=== PATIENT | male | born 1940 | race Caucasian/White ===

== ENCOUNTER 2016-07-22 05:43 | Observation (INO) | payer MEDICARE, OTHER ==
--- NOTE | ~2016-07-22 | CN ---
Consultation Report [facility] [address] [place]. [address] NAME: NORMA HUYNH SR : 38 STATUS : ADM Keith PAT#: [id number] AGE: 75 ADM/REG DATE : 07/22/16 MR#: [id number] REPORT SERV DATE: 07/22/16 DICTATED BY: YVES MOON DATE: 07/22/16 REPORT STATUS : Draft TRANSCRIBED BY: MODL DATE: 07/22/16 NEPHROLOGY CONSULT NOTE DATE OF CONSULTATION: 07/22/2016 HISTORY OF PRESENT ILLNESS: Mr. Huynh is a 75-year-old white male, admitted for abnormal stress test and planned cardiac cath, he was found to have elevated creatinine and cardiac cath was canceled and I was consulted for evaluation of acute on chronic renal failure. Baseline creatinine is 1.4 back in 02/2015, 1.2 in 09/2015, 1.4 again in March of this year. These were at Dr. Idris Ruelas's office, his primary care physician in [place]. PAST MEDICAL HISTORY: Significant for supraventricular tachycardia; coronary artery disease, status post coronary bypass grafting in 2003, three-vessel bypass then; carotid disease; hyperlipidemia but intolerant to statins and Zetia; chronic hypertension; and diabetes mellitus type 2, well controlled lately. Hemoglobin A1c is at 8.0 range. Also has been labeled as having a fatty liver for some years and most recently had a diagnosis of cirrhosis with esophageal varices which required banding. SOCIAL HISTORY: No tobacco. No alcohol. No drugs. He is . FAMILY HISTORY: Positive for coronary artery disease. His father at age 54, but no kidney disease or liver disease reported. REVIEW OF SYSTEMS: No chest pain, but has some chest tightness and felt tired all the time which was new. Well controlled blood pressure. Well controlled diabetes. Although he does admit to drinking a lot of sodas lately. PHYSICAL EXAMINATION: VITAL SIGNS: Blood pressure 129/61, heart rate of 56, respirations 19, temperature 98.2. GENERAL: Alert and oriented x3. Cooperative. In no acute distress. Up in bed. Eating lunch. HEENT: Unremarkable. Carotids without bruits. LUNGS: Clear. CARDIOVASCULAR: Without murmur, gallops, or rubs. ABDOMEN: Soft, benign. Bowel sounds are present. Nontender. No bruit. NEUROLOGICAL. Nonfocal. Good attitude. No skin rash or lymphadenopathy. LABORATORY DATA: Sodium 143, potassium 3.9, chloride 110, CO2 of 24, BUN of 46, creatinine 2.92, calcium 8.1. Urinalysis pending. Ultrasound of the kidneys pending. White count is 8.1 with the hemoglobin 12, hematocrit 37, platelet count 112,000. INR is 1.1. ASSESSMENT: 1. Chronic kidney disease, stage IV. Suspected acute renal failure, not chronic. We will Consultation Report [address] [place]. [address] NAME: NORMA HUYNH SR : 38 STATUS : ADM Keith PAT#: [id number] AGE: 75 ADM/REG DATE : 07/22/16 MR#: [id number] REPORT SERV DATE: 07/22/16 DICTATED BY: YVES MOON DATE: 07/22/16 REPORT STATUS : Draft TRANSCRIBED BY: TRISTAN DATE: 07/22/16 rule out myeloma. Ultrasound to rule out obstruction and we will follow serial creatinine after fluid therapy. 2. Coronary artery disease, history of coronary bypass grafting in the past. Positive stress test recently. Needs cardiac cath. We will do in the near future once creatinine has improved. 3. Hypertension. 4. Diabetes mellitus, type 2. 5. Cirrhosis, thought to be GUADALUPE with esophageal varices requiring banding in the past. 6. Anemia, minor. PLAN: Hydration. Serial labs. Ultrasound of the kidneys. We will follow serial lab. GODFREY/TRISTAN Yevs Moon M.D. / [id number] CC: Jelani Conley
[~2016-07-22 05:43] MED LIST: AMARYL2 PO; ASAB PO; ATEN25 PO; BETAP120 PO; DEPO-TESTOS200 MG/M1 IM; FISH-EPA1000 MG PO; GLUCOPHAGE1000 MG PO; HYZAAR 100/25 T1 TAB PO; LEXAPRO10 PO; MD ANDERSON PO/LIQ; MULTIPLE VIT PO; NORV25 PO; PREV30 PO; XIFAXAN550 MG PO
[2016-07-22 07:02] LABS: BASOPHILS 0.6 %; BASOPHILS ABSOLUTE 0.05 10/3/uL (0.0-0.16); EOSINOPHILS 4.8 %; EOSINOPHILS ABSOLUTE 0.39 10/3/uL (0.0-0.53); HEMOGLOBIN 12.9 g/dL (13.6-17.8); IMMATURE GRANULOCYTES 0.2 %; IMMATURE GRANULOCYTES ABSOLUTE 0.02 10/3/uL (0.0-0.11); LYMPHOCYTES 13.5 %; MEAN CORPUS HGB CONC 34.9 g/dL (32.0-36.0); MEAN CORPUSCULAR HEMOGLOB 33.3 pg (26.0-34.0); MEAN CORPUSCULAR VOLUME 95.6 fL (80-100); MEAN PLATELET VOLUME 10.9 fL (9.2-13.0); MONOCYTES 14.4 %; MONOCYTES ABSOLUTE 1.17 10/3/uL (0.21-1.20); NEUTROPHILS 66.5 %; NEUTROPHILS ABSOLUTE 5.39 10/3/uL (2.02-8.40); RBC DISTRIBUTION WIDTH 15.6 % (12.0-16.0); RED CELL COUNT 3.87 10/6/uL (4.7-6.1); WHITE BLOOD CELLS 8.1 10/3/uL (4.5-10.5)
[2016-07-22 07:05] LABS: MANUAL DIFF NO %; PLATELET COUNT 112 10/3/uL (150-400)
[2016-07-22 07:08] LABS: CALCIUM, SERUM 8.1 MG/DL (8.5-10.4); CHLORIDE, SERUM 110 MMOL/L (96-112); CHOL/HDL RATIO(NOT ORDER) 3.5 (0-5); CO2 (CARBON DIOXIDE) 24 MMOL/L (24-34); GLUCOSE, SERUM 103 MG/DL (60-99); HDL CHOLESTEROL 44 MG/DL (> 39); LDL CHOLESTEROL 95 MG/DL (< 130); NON-HDL CHOLESTEROL 112 MG/DL (< 160); POTASSIUM, SERUM 3.9 MMOL/L (3.5-5.3); SODIUM, SERUM 143 MMOL/L (135-148); TRIGLYCERIDE 89 MG/DL (< 150)
[2016-07-22 07:10] LABS: BUN (BLOOD UREA NITROGEN) 46 MG/DL (6-23); CHOLESTEROL 156 MG/DL (< 200); CREATININE 2.92 MG/DL (0.70-1.30); GFR AFRICAN AMERICAN 23 ML/MIN (>=60); GFR NON AFRICAN AMERICAN 20 ML/MIN (>=60)
[2016-07-22 18:10] LABS: ASCORBIC ACID (UR NOT ORDER) NEG (NEG); BILIRUBIN, URINE NEGATIVE (NEG); KETONE, URINE NEGATIVE (NEG); LEUKOCYTE ESTERASE(NOT OR NEG (NEG); WBC (NOT ORDERED) (RFLEX) 1 (0-5)
[2016-07-23 04:27] LABS: BASOPHILS 0.8 %; BASOPHILS ABSOLUTE 0.05 10/3/uL (0.0-0.16); EOSINOPHILS 5.8 %; EOSINOPHILS ABSOLUTE 0.37 10/3/uL (0.0-0.53); HEMATOCRIT 34.1 % (40.0-51.0); HEMOGLOBIN 11.7 g/dL (13.6-17.8); IMMATURE GRANULOCYTES 0.3 %; IMMATURE GRANULOCYTES ABSOLUTE 0.02 10/3/uL (0.0-0.11); LYMPHOCYTES 21.8 %; LYMPHOCYTES ABSOLUTE 1.39 10/3/uL (0.67-4.30); MEAN CORPUS HGB CONC 34.3 g/dL (32.0-36.0); MEAN CORPUSCULAR VOLUME 96.1 fL (80-100); MEAN PLATELET VOLUME 10.8 fL (9.2-13.0); MONOCYTES 14.6 %; MONOCYTES ABSOLUTE 0.93 10/3/uL (0.21-1.20); NEUTROPHILS 56.7 %; NEUTROPHILS ABSOLUTE 3.63 10/3/uL (2.02-8.40); PLATELET COUNT 99 10/3/uL (150-400); RBC DISTRIBUTION WIDTH 15.2 % (12.0-16.0); RED CELL COUNT 3.55 10/6/uL (4.7-6.1); WHITE BLOOD CELLS 6.4 10/3/uL (4.5-10.5)
[2016-07-23 04:28] LABS: MANUAL DIFF NO %
[2016-07-23 04:41] LABS: CALCIUM, SERUM 7.3 MG/DL (8.5-10.4); CHLORIDE, SERUM 113 MMOL/L (96-112); CO2 (CARBON DIOXIDE) 23 MMOL/L (24-34); CREATININE 2.44 MG/DL (0.70-1.30); GFR AFRICAN AMERICAN 28 ML/MIN (>=60); GFR NON AFRICAN AMERICAN 25 ML/MIN (>=60); PHOSPHORUS, SERUM 2.9 MG/DL (2.5-4.5); POTASSIUM, SERUM 3.6 MMOL/L (3.5-5.3); SODIUM, SERUM 145 MMOL/L (135-148)
[2016-07-23 04:44] LABS: T PROTEIN (ELECT)(NOT OR 5.8 G/DL (6.0-8.5)
[2016-07-23 04:50] LABS: ALBUMIN 2.6 G/DL (3.5-5.0); BUN (BLOOD UREA NITROGEN) 42 MG/DL (6-23); GLUCOSE, SERUM 66 MG/DL (60-99)
[2016-07-23 11:34] LABS: A/G 1.06 RATIO (0.9-2.10); ALB RELATIVE % 51.5 % (60.0-89.0); ALBUMIN (ELECTRO) 2.99 GM/DL (3.2-5.5); ALPHA 1 (ELECTRO) 0.23 GM/DL (0.1-0.4); ALPHA 2 (ELECTRO) 0.55 GM/DL (0.5-1.10); ALPHA 2 RELAT % 9.5 % (4.5-26.0); BETA GLOBULIN (SPE) 0.65 GM/DL (0.60-1.30); BETA RELATIVE % 11.2 % (9.0-22.0); GAMMA GLOBULIN (SPE) 1.38 G/DL (0.70-1.60); GAMMA RELAT % 23.8 % (6.0-22.0)
[2016-07-24 05:48] LABS: BASOPHILS 0.7 %; BASOPHILS ABSOLUTE 0.04 10/3/uL (0.0-0.16); EOSINOPHILS 5.9 %; EOSINOPHILS ABSOLUTE 0.34 10/3/uL (0.0-0.53); HEMATOCRIT 33.1 % (40.0-51.0); HEMOGLOBIN 11.7 g/dL (13.6-17.8); IMMATURE GRANULOCYTES 0.2 %; IMMATURE GRANULOCYTES ABSOLUTE 0.01 10/3/uL (0.0-0.11); LYMPHOCYTES 19.5 %; LYMPHOCYTES ABSOLUTE 1.12 10/3/uL (0.67-4.30); MEAN CORPUS HGB CONC 35.3 g/dL (32.0-36.0); MEAN CORPUSCULAR HEMOGLOB 33.1 pg (26.0-34.0); MEAN CORPUSCULAR VOLUME 93.8 fL (80-100); MONOCYTES 14.1 %; MONOCYTES ABSOLUTE 0.81 10/3/uL (0.21-1.20); NEUTROPHILS 59.6 %; NEUTROPHILS ABSOLUTE 3.41 10/3/uL (2.02-8.40); PLATELET COUNT 94 10/3/uL (150-400); RBC DISTRIBUTION WIDTH 15.4 % (12.0-16.0); RED CELL COUNT 3.53 10/6/uL (4.7-6.1); WHITE BLOOD CELLS 5.7 10/3/uL (4.5-10.5)
[2016-07-24 05:49] LABS: MANUAL DIFF NO %
[2016-07-24 05:54] LABS: BUN (BLOOD UREA NITROGEN) 42 MG/DL (6-23); CALCIUM, SERUM 7.8 MG/DL (8.5-10.4); CHLORIDE, SERUM 111 MMOL/L (96-112); CO2 (CARBON DIOXIDE) 21 MMOL/L (24-34); CREATININE 2.18 MG/DL (0.70-1.30); GFR AFRICAN AMERICAN 33 ML/MIN (>=60); GFR NON AFRICAN AMERICAN 28 ML/MIN (>=60); GLUCOSE, SERUM 63 MG/DL (60-99); POTASSIUM, SERUM 3.7 MMOL/L (3.5-5.3); SODIUM, SERUM 144 MMOL/L (135-148)
[2016-07-24] MEDS ORDERED: ASAB PO (08:56)
[2016-07-24] MEDS ORDERED: LOP25 PO (09:02)
[2016-10-10] MEDS ORDERED: GLUCXL5 PO (10:36)
[2016-10-11] MEDS ORDERED: PLAVIX PO (09:35)
[2016-10-11] MEDS ORDERED: NITROQUICK0.4 MG SL (09:36)
[2016-12-05] MEDS ORDERED: L20 PO (16:31)
== END 2016-07-24 14:49 | disposition home or self-care (01) ==
LOC: CORLMH 05:43 → SSU1 06:00 → CORLMH 10:39 → 7NO 10:40
PROVIDERS: Internal Medicine; Internal Medicine Cardiovascular Disease; Internal Medicine Nephrology; Nurse Practitioner Family
DX: R07.2 Precordial pain (principal); R94.39 Abnormal result of other cardiovascular function study; I47.1 Supraventricular tachycardia; E78.5 Hyperlipidemia, unspecified; K74.60 Unspecified cirrhosis of liver; I85.10 Secondary esophageal varices without bleeding; N18.4 Chronic kidney disease, stage 4 (severe); I25.118 Atherosclerotic heart disease of native coronary artery with other forms of angina pectoris; I12.0 Hypertensive chronic kidney disease with stage 5 chronic kidney disease or end stage renal disease; E11.22 Type 2 diabetes mellitus with diabetic chronic kidney disease; D64.9 Anemia, unspecified; Z88.1 Allergy status to other antibiotic agents; Z79.899 Other long term (current) drug therapy; Z53.9 Procedure and treatment not carried out, unspecified reason
CPT/HCPCS: 71020; 76775; 80048; 80061; 80069; 81001; 82962; 83735; 84155; 84165; 85025; 93005; A9270-GY; G0378